=== PATIENT | male | born 1980 | race African-American/Black ===

== ENCOUNTER 2019-08-17 15:52 | Emergency (ER) | payer OTHER ==
[~2019-08-17] VITALS: Ht 170.2 cm; Wt 72.6 kg
[2019-08-17 15:58] VITALS: BP 129/81
[2019-08-17] MEDS ORDERED: VIBRAMYCIN 100100 MG PO (16:02)
== END 2019-08-17 16:31 | disposition home or self-care (01) ==
LOC: ER 15:52
DX: S30.862A Insect bite (nonvenomous) of penis, initial encounter (principal); R50.9 Fever, unspecified; Z88.1 Allergy status to other antibiotic agents; Z20.828 Contact with and (suspected) exposure to other viral communicable diseases; W57.XXXA Bitten or stung by nonvenomous insect and other nonvenomous arthropods, initial encounter; Y93.89 Activity, other specified; Y92.89 Other specified places as the place of occurrence of the external cause; Y99.8 Other external cause status

== ENCOUNTER 2019-08-25 05:59 | Emergency (ER) | payer OTHER ==
[~2019-08-25] VITALS: Ht 172.7 cm; Wt 72.6 kg
[~2019-08-25 05:59] MED LIST: VIBRAMYCIN 100100 MG PO
[2019-08-25] MEDS ORDERED: BACTRIM DS TAB1 EAC1 PO (06:07)
[2019-08-25] MEDS ORDERED: KEFLEX500 M1 PO (06:08)
[2019-08-25 07:31] VITALS: BP 140/85
== END 2019-08-25 07:35 | disposition home or self-care (01) ==
LOC: ER 05:59
DX: N48.21 Abscess of corpus cavernosum and penis (principal); F17.210 Nicotine dependence, cigarettes, uncomplicated; Z85.828 Personal history of other malignant neoplasm of skin; Z79.2 Long term (current) use of antibiotics